=== PATIENT | female | born 1945 | race Caucasian/White ===

== ENCOUNTER 2017-11-23 06:04 | Emergency (ER) | payer MEDICARE ==
[~2017-11-23] VITALS: Ht 162.6 cm; Wt 80.0 kg
[2017-11-23 06:15] VITALS: BP 106/58
[2017-11-23 07:13] LABS: ALBUMIN 3.2 g/dL (3.4-5.0); ANION GAP 9 mmol/L (5-15); CHLORIDE 100 mmol/L (98-107); CREATININE 0.87 mg/dL (0.55-1.02)
[2017-11-23 07:25] LABS: BASOPHILS # (AUTO) 0.05 x10^3/uL (0-0.1); BASOPHILS % (AUTO) 1 % (0-1); EOSINOPHILS # (AUTO) 0.32 x10^3/uL (0-0.4); EOSINOPHILS % (AUTO) 4 % (1-7); LYMPHOCYTES # (AUTO) 2.52 x10^3/uL (1-3.4); LYMPHOCYTES % (AUTO) 29 % (22-44); MD NO; MEAN CORPUSCULAR HEMOGLOBIN 29.4 pg (27.0-34.8); MEAN CORPUSCULAR HGB CONC 33.2 g/dL (32.4-35.8); MEAN CORPUSCULAR VOLUME 88.4 fL (80-100); MEAN PLATELET VOLUME 10.9 fL (7.4-10.4); MONOCYTES % (AUTO) 7 % (2-9); NEUTROPHILS # (AUTO) 5.16 x10^3/uL (1.8-6.8); NEUTROPHILS % (AUTO) 60 % (42-75); PLATELET COUNT 128 x10^3/uL (130-400); RED BLOOD COUNT 5.08 x10^6/uL (3.82-5.3); RED CELL DISTRIBUTION WIDTH 14.8 % (9.6-15.2)
[2017-11-23] MEDS ORDERED: LIDOCAINE-MPF 1%, 5ML INFIL ONE (07:30)
[2017-11-23] MEDS ORDERED: DIPH,PERTUSS(ACELL),TET VAC/PF 0.5 ML IM-VACC ONE ×2 (08:30→08:38)
== END 2017-11-23 10:05 | disposition home or self-care (01) ==
LOC: ED 09:00
DX: S01.111A Laceration without foreign body of right eyelid and periocular area, initial encounter (principal); E11.9 Type 2 diabetes mellitus without complications; W01.0XXA Fall on same level from slipping, tripping and stumbling without subsequent striking against object, initial encounter; Y93.01 Activity, walking, marching and hiking; Y92.009 Unspecified place in unspecified non-institutional (private) residence as the place of occurrence of the external cause; Y99.9 Unspecified external cause status
CPT/HCPCS: 12011; 36415; 70450; 80048; 82040; 85025; 90471; 90715; 93005; 99285

== ENCOUNTER 2018-02-25 19:08 | Inpatient (IN) | payer MEDICARE ==
[~2018-02-25] VITALS: Ht 162.6 cm; Wt 90.1 kg
[2018-02-25] MEDS ORDERED: SODIUM CHLORIDE 0.9% 1,000 ML IV ONE (19:21)
[2018-02-25] MEDS ORDERED: PLEASE ENTER HEIGHT AND WEIGHT MC SCH (19:30)
[2018-02-25] MEDS ORDERED: SODIUM CHLORIDE FLUSH 10ML SYR IVF ONE (19:30)
[2018-02-25 20:08] LABS: BASOPHILS # (AUTO) 0.04 x10^3/uL (0-0.1); BASOPHILS % (AUTO) 1 % (0-1); EOSINOPHILS # (AUTO) 0.37 x10^3/uL (0-0.4); EOSINOPHILS % (AUTO) 5 % (1-7); LYMPHOCYTES # (AUTO) 2.24 x10^3/uL (1-3.4); LYMPHOCYTES % (AUTO) 27 % (22-44); MD NO; MEAN CORPUSCULAR HEMOGLOBIN 30.2 pg (27.0-34.8); MEAN CORPUSCULAR HGB CONC 33.4 g/dL (32.4-35.8); MEAN CORPUSCULAR VOLUME 90.6 fL (80-100); MEAN PLATELET VOLUME 10.2 fL (7.4-10.4); MONOCYTES # (AUTO) 0.52 x10^3/uL (0.2-0.8); MONOCYTES % (AUTO) 6 % (2-9); NEUTROPHILS # (AUTO) 5.08 x10^3/uL (1.8-6.8); NEUTROPHILS % (AUTO) 62 % (42-75); PLATELET COUNT 135 x10^3/uL (130-400); RED BLOOD COUNT 4.77 x10^6/uL (3.82-5.3); RED CELL DISTRIBUTION WIDTH 14.6 % (9.6-15.2)
[2018-02-25 20:21] LABS: ALBUMIN 3.3 g/dL (3.4-5.0); ANION GAP 4 mmol/L (5-15); CALCIUM 8.6 mg/dL (8.5-10.1); CHLORIDE 105 mmol/L (98-107)
[2018-02-25 20:22] LABS: SALICYLATE LEVEL < 1.7 mg/dL (2.8-20.0)
[2018-02-25 20:30] LABS: ALANINE AMINOTRANSFERASE 26 U/L (12-78); ALKALINE PHOSPHATASE 85 U/L (45-117); BILIRUBIN,TOTAL 0.7 mg/dL (0.2-1.0)
[2018-02-25 20:31] LABS: ACETAMINOPHEN < 2 mcg/mL (10-30)
[2018-02-25 21:42] VITALS: BP 110/70
[2018-02-25 22:26] LABS: MICROSCOPIC NOT IND
[2018-02-25 22:29] LABS: CULTURE INDICATED? NO
[2018-02-25 22:35] LABS: AMPHETAMINE SCREEN, URINE Negative (Negative); BARBITURATE SCREEN, URINE Negative (Negative); BENZODIAZEPINE SCREEN, URINE Positive (Negative); CANNABINOID SCREEN, URINE Negative (Negative); COCAINE SCREEN, URINE Negative (Negative); METHADONE SCREEN, URINE Negative (Negative); OPIATE SCREEN, URINE Positive (Negative)
[2018-02-25] MEDS: ENOXAPARIN 40 MG/0.4 ML SQ SCH (22:43)
[2018-02-25] MEDS: D5%-0.9% NACL 1,000 ML IV SCH (23:43)
[2018-02-26] MEDS: INSULIN LISPRO 100 UNITS/ML, PEN SQ-INSULIN SCH ×6 (00:25→20:33)
[2018-02-26 00:41] VITALS: BP 110/69
[2018-02-26 02:59] VITALS: BP 110/70
[2018-02-26] MEDS: D5%-0.9% NACL 1,000 ML IV SCH ×2 (06:02→12:30)
[2018-02-26 07:00] VITALS: BP 146/80
[2018-02-26] MEDS: ONDANSETRON ODT 4 MG PO PRN (07:40)
[2018-02-26] MEDS ORDERED: NITR0.6T4 SL (11:07)
[2018-02-26] MEDS ORDERED: ISOS30TA21 PO (11:07)
[2018-02-26] MEDS ORDERED: MAG355OR17 PO (11:07)
[2018-02-26] MEDS ORDERED: POLY17PO5 PO (11:07)
[2018-02-26] MEDS ORDERED: TRIA340. TP (11:07)
[2018-02-26] MEDS ORDERED: MORP30TA PO (11:07)
[2018-02-26] MEDS ORDERED: ALPR0.5T PO (11:07)
[2018-02-26] MEDS ORDERED: ZOLP10TA5 PO (11:07)
[2018-02-26] MEDS ORDERED: CYCL-259 PO (11:07)
[2018-02-26] MEDS ORDERED: RANI150T23 PO (11:07)
[2018-02-26 12:46] VITALS: BP 122/74
[2018-02-26] MEDS: CYCLOBENZAPRINE 10 MG TABLET PO SCH ×3 (12:56→20:33)
[2018-02-26] MEDS: ACETAMINOPHEN 325 MG TABLET PO PRN (12:56)
[2018-02-26] MEDS: SODIUM CHLORIDE 0.9% 1,000 ML IV SCH (16:30)
[2018-02-26] MEDS ORDERED: SODIUM CHLORIDE 0.9% 1,000 ML IV SCH (16:30)
[2018-02-26] MEDS: FAMOTIDINE 20 MG TABLET PO SCH (17:04)
[2018-02-26 18:48] VITALS: BP 125/79
[2018-02-26] MEDS: ISOSORBIDE DINITRATE 30 MG TABLET PO SCH (20:33)
[2018-02-26] MEDS: ENOXAPARIN 40 MG/0.4 ML SQ SCH (22:57)
[2018-02-27] MEDS: SODIUM CHLORIDE 0.9% 1,000 ML IV SCH ×2 (01:56→12:56)
[2018-02-27 02:23] VITALS: BP 141/83
[2018-02-27] MEDS: ACETAMINOPHEN 325 MG TABLET PO PRN ×3 (02:36→20:17)
[2018-02-27 07:55] VITALS: BP 142/84
[2018-02-27] MEDS: INSULIN LISPRO 100 UNITS/ML, PEN SQ-INSULIN SCH ×4 (08:24→20:18)
[2018-02-27] MEDS: CYCLOBENZAPRINE 10 MG TABLET PO SCH ×4 (08:32→20:17)
[2018-02-27 08:59] LABS: BASOPHILS # (AUTO) 0.03 x10^3/uL (0-0.1); BASOPHILS % (AUTO) 1 % (0-1); EOSINOPHILS % (AUTO) 6 % (1-7); LYMPHOCYTES % (AUTO) 28 % (22-44); MD NO; MEAN CORPUSCULAR HEMOGLOBIN 29.8 pg (27.0-34.8); MEAN CORPUSCULAR HGB CONC 33.8 g/dL (32.4-35.8); MEAN CORPUSCULAR VOLUME 88.1 fL (80-100); MONOCYTES # (AUTO) 0.36 x10^3/uL (0.2-0.8); MONOCYTES % (AUTO) 5 % (2-9); NEUTROPHILS # (AUTO) 4.33 x10^3/uL (1.8-6.8); NEUTROPHILS % (AUTO) 61 % (42-75); PLATELET COUNT 128 x10^3/uL (130-400); RED CELL DISTRIBUTION WIDTH 14.5 % (9.6-15.2)
[2018-02-27 09:12] LABS: ALANINE AMINOTRANSFERASE 24 U/L (12-78); ANION GAP 7 mmol/L (5-15); CALCIUM 8.6 mg/dL (8.5-10.1); CHLORIDE 108 mmol/L (98-107)
[2018-02-27 09:14] LABS: ALKALINE PHOSPHATASE 75 U/L (45-117); BILIRUBIN,TOTAL 0.8 mg/dL (0.2-1.0); TOTAL PROTEIN 6.7 g/dL (6.4-8.2)
[2018-02-27] MEDS ORDERED: METO-282 PO (10:34)
[2018-02-27] MEDS: GABAPENTIN 100 MG CAPSULE PO SCH ×4 (12:56→20:47)
[2018-02-27 14:16] VITALS: BP 163/94
[2018-02-27] MEDS: FAMOTIDINE 20 MG TABLET PO SCH (17:20)
[2018-02-27 18:31] VITALS: BP 139/83
[2018-02-27] MEDS: ISOSORBIDE DINITRATE 30 MG TABLET PO SCH (20:17)
[2018-02-27] MEDS: ENOXAPARIN 40 MG/0.4 ML SQ SCH (22:58)
[2018-02-28] MEDS: ONDANSETRON ODT 4 MG PO PRN (00:02)
[2018-02-28 02:36] VITALS: BP 153/90
[2018-02-28 07:46] VITALS: BP 145/85
[2018-02-28] MEDS: INSULIN LISPRO 100 UNITS/ML, PEN SQ-INSULIN SCH ×3 (08:12→16:00)
[2018-02-28] MEDS: CYCLOBENZAPRINE 10 MG TABLET PO SCH ×2 (09:14→13:03)
[2018-02-28] MEDS: GABAPENTIN 100 MG CAPSULE PO SCH (09:14)
[2018-02-28 12:45] VITALS: BP 141/84
[2018-02-28] MEDS: ACETAMINOPHEN 325 MG TABLET PO PRN (14:05)
[2018-02-28] MEDS: FAMOTIDINE 20 MG TABLET PO SCH (16:30)
== END 2018-02-28 17:32 | disposition home or self-care (01) | DRG 917 ==
LOC: ED 20:03 → EDIP 20:35 → SUATTDRO 21:03 → 4EST 21:22
PROVIDERS: ADMIT Hospitalist; ATTEND Hospitalist
PROC: 0T9B70Z Drainage of Bladder with Drainage Device, Via Natural or Artificial Opening (ICD-10-PCS; principal; 2018-02-25)
DX: T50.901A Poisoning by unspecified drugs, medicaments and biological substances, accidental (unintentional), initial encounter (principal); G92 Toxic encephalopathy; E11.42 Type 2 diabetes mellitus with diabetic polyneuropathy; E83.42 Hypomagnesemia; J98.11 Atelectasis; G62.9 Polyneuropathy, unspecified; G47.00 Insomnia, unspecified; G89.29 Other chronic pain; I10 Essential (primary) hypertension; I25.10 Atherosclerotic heart disease of native coronary artery without angina pectoris; K21.9 Gastro-esophageal reflux disease without esophagitis; M79.7 Fibromyalgia; Z79.891 Long term (current) use of opiate analgesic; Z79.899 Other long term (current) drug therapy; Z85.841 Personal history of malignant neoplasm of brain; Z88.8 Allergy status to other drugs, medicaments and biological substances; Y92.89 Other specified places as the place of occurrence of the external cause
CPT/HCPCS: 36415; 70450; 71045; 80053; 80307; 80329; 81003; 82140; 82962; 83605; 83735; 84443; 85025; 86141; 87040; 93005; 99285; J1650; J7042; Q0162; G0480; J7030

== ENCOUNTER 2018-04-24 10:45 | Emergency (ER) | payer MEDICARE ==
[~2018-04-24] VITALS: Ht 162.6 cm; Wt 82.7 kg
[~2018-04-24 10:45] MED LIST: ALPR0.5T PO; CYCL-259 PO; ISOS30TA21 PO; MAG355OR17 PO; METO-282 PO; MORP30TA PO; NITR0.6T4 SL; POLY17PO5 PO; RANI150T23 PO; TRIA340. TP; ZOLP10TA5 PO
[2018-04-24 10:50] VITALS: BP 142/98
== END 2018-04-24 12:06 | disposition home or self-care (01) ==
LOC: ED 12:00
DX: E11.65 Type 2 diabetes mellitus with hyperglycemia (principal); I10 Essential (primary) hypertension; Z99.3 Dependence on wheelchair; Z76.0 Encounter for issue of repeat prescription
CPT/HCPCS: 99283

== ENCOUNTER 2018-04-29 22:54 | Emergency (ER) | payer MEDICARE ==
[~2018-04-29] VITALS: Ht 162.6 cm; Wt 82.7 kg
[2018-04-30 00:17] LABS: MEAN CORPUSCULAR HEMOGLOBIN 29.6 pg (27.0-34.8); MEAN CORPUSCULAR HGB CONC 32.8 g/dL (32.4-35.8); MEAN CORPUSCULAR VOLUME 90.4 fL (80-100); MEAN PLATELET VOLUME 9.8 fL (7.4-10.4); PLATELET COUNT 168 x10^3/uL (130-400); RED BLOOD COUNT 4.81 x10^6/uL (3.82-5.3); RED CELL DISTRIBUTION WIDTH 14.5 % (9.6-15.2)
[2018-04-30 00:19] LABS: ALBUMIN 3.2 g/dL (3.4-5.0); ANION GAP 9 mmol/L (5-15); CALCIUM 8.6 mg/dL (8.5-10.1); CHLORIDE 105 mmol/L (98-107); CREATININE 0.69 mg/dL (0.55-1.02)
[2018-04-30 00:43] LABS: BASOPHILS # (AUTO) 0.05 x10^3/uL (0-0.1); BASOPHILS % (AUTO) 1 % (0-1); EOSINOPHILS # (AUTO) 0.17 x10^3/uL (0-0.4); EOSINOPHILS % (AUTO) 2 % (1-7); LYMPHOCYTES # (AUTO) 2.84 x10^3/uL (1-3.4); LYMPHOCYTES % (AUTO) 30 % (22-44); MD SCAN; MONOCYTES # (AUTO) 0.71 x10^3/uL (0.2-0.8); MONOCYTES % (AUTO) 7 % (2-9); NEUTROPHILS # (AUTO) 5.77 x10^3/uL (1.8-6.8); NEUTROPHILS % (AUTO) 61 % (42-75)
[2018-04-30 02:32] VITALS: BP 111/58
== END 2018-04-30 03:43 | disposition home or self-care (01) ==
LOC: ED 23:45
DX: S06.0X0A Concussion without loss of consciousness, initial encounter (principal); T42.4X1A Poisoning by benzodiazepines, accidental (unintentional), initial encounter; I10 Essential (primary) hypertension; E11.9 Type 2 diabetes mellitus without complications; I25.10 Atherosclerotic heart disease of native coronary artery without angina pectoris; Z87.891 Personal history of nicotine dependence; W01.0XXA Fall on same level from slipping, tripping and stumbling without subsequent striking against object, initial encounter; Y93.89 Activity, other specified; Y92.009 Unspecified place in unspecified non-institutional (private) residence as the place of occurrence of the external cause; Y99.8 Other external cause status
CPT/HCPCS: 36415; 70450; 72125; 80048; 82040; 85025; 99285

== ENCOUNTER 2018-05-16 01:10 | Emergency (ER) | payer MEDICARE ==
[~2018-05-16] VITALS: Ht 162.6 cm; Wt 85.0 kg
[2018-05-16] MEDS ORDERED: SODIUM CHLORIDE FLUSH 10ML SYR IVF ONE ×2 (01:30→02:00)
[2018-05-16] MEDS ORDERED: SODIUM CHLORIDE 0.9% 1,000ML IVBOLUS ONE (02:00)
[2018-05-16] MEDS ORDERED: LORazepam 2 MG/ML, 1ML IVPush ONE (02:00)
[2018-05-16] MEDS ORDERED: MORPHINE SULFATE 4 MG/ML, 1ML IVPush PRN (02:00)
[2018-05-16] MEDS ORDERED: MORPHINE SULFATE 4 MG/ML, 1ML ONE (02:09)
[2018-05-16] MEDS ORDERED: LORazepam 2 MG/ML, 1ML ONE (02:10)
[2018-05-16 02:14] LABS: BASOPHILS # (AUTO) 0.07 x10^3/uL (0-0.1); BASOPHILS % (AUTO) 1 % (0-1); EOSINOPHILS % (AUTO) 2 % (1-7); LYMPHOCYTES # (AUTO) 2.64 x10^3/uL (1-3.4); LYMPHOCYTES % (AUTO) 29 % (22-44); MD NO; MEAN CORPUSCULAR HEMOGLOBIN 30.2 pg (27.0-34.8); MEAN CORPUSCULAR HGB CONC 33.3 g/dL (32.4-35.8); MEAN CORPUSCULAR VOLUME 90.7 fL (80-100); MEAN PLATELET VOLUME 10.3 fL (7.4-10.4); MONOCYTES # (AUTO) 0.88 x10^3/uL (0.2-0.8); MONOCYTES % (AUTO) 10 % (2-9); NEUTROPHILS # (AUTO) 5.48 x10^3/uL (1.8-6.8); NEUTROPHILS % (AUTO) 59 % (42-75); PLATELET COUNT 139 x10^3/uL (130-400); RED BLOOD COUNT 4.96 x10^6/uL (3.82-5.3); RED CELL DISTRIBUTION WIDTH 14.1 % (9.6-15.2)
[2018-05-16 02:23] LABS: ALANINE AMINOTRANSFERASE 29 U/L (12-78); ALBUMIN 3.7 g/dL (3.4-5.0); ANION GAP 8 mmol/L (5-15); CHLORIDE 108 mmol/L (98-107); CREATININE 0.89 mg/dL (0.55-1.02)
[2018-05-16 02:24] LABS: INTERNATIONAL NORMALIZED RATIO 1.01 (0.93-1.1); PROTHROMBIN TIME 10.4 Seconds (9.6-11.5)
[2018-05-16 02:28] LABS: ALKALINE PHOSPHATASE 82 U/L (45-117); BILIRUBIN,TOTAL 0.7 mg/dL (0.2-1.0); T4 (THYROXINE) 14.7 mcg/dL (4.8-13.9); TOTAL PROTEIN 7.5 g/dL (6.4-8.2); TROPONIN I < 0.015 ng/mL (0.000-0.045)
[2018-05-16 02:34] LABS: THYROID STIMULATING HORMONE 0.192 mIU/L (0.358-3.740)
[2018-05-16] MEDS ORDERED: OMNIPAQUE 350 MG/ML, 100ML BOTTLE ONE (04:28)
[2018-05-16 04:32] VITALS: BP 119/58
== END 2018-05-16 05:19 | disposition home or self-care (01) ==
LOC: ED 03:16
DX: E11.40 Type 2 diabetes mellitus with diabetic neuropathy, unspecified (principal); E05.90 Thyrotoxicosis, unspecified without thyrotoxic crisis or storm; I10 Essential (primary) hypertension; F32.9 Major depressive disorder, single episode, unspecified
CPT/HCPCS: 36415; 71045; 71275; 80053; 83735; 83880; 84436; 84443; 84484; 85025; 85379; 85610; 85730; 93005; 96374; 96375; 99285; J2060; J7030; Q9967